=== PATIENT | male | born 1995 | race Caucasian/White ===

== ENCOUNTER 2019-03-05 11:29 | Emergency (ER) | payer SELFPAY ==
[~2019-03-05] VITALS: Ht 177.8 cm; Wt 130.9 kg
[2019-03-05 11:38] VITALS: BP 147/69; PULSE 57; RESP 18; Ht 177.8 cm; Wt 130.9 kg
== END 2019-03-05 12:17 | disposition left against medical advice (07) ==
LOC: FTE 11:29
DX: Z53.21 Procedure and treatment not carried out due to patient leaving prior to being seen by health care provider (principal)